=== PATIENT | female | born 1945 | race Caucasian/White ===

== ENCOUNTER 2020-07-20 13:36 | Inpatient (IN) ==
[2020-07-20 15:10] LABS: Basophils # 0.1 K/mcL (0.0-0.2); Basophils % 0.9 %; Eosinophils # 0.1 K/mcL (0.0-0.6); Eosinophils % 0.6 %; Hematocrit 37.5 % (35.3-44.9); Hemoglobin 11.5 g/dL (11.5-15.4); Immature Granulocytes % 0.3 % (0-4); Lymphocytes # 0.9 K/mcL (0.6-4.6); Lymphocytes % 11.7 %; Mean Corpuscular HGB Conc 30.7 g/dL (31.6-35.5); Mean Corpuscular Hemoglobin 28.8 pg (28.0-33.3); Mean Corpuscular Volume 93.8 fL (83.0-100.0); Mean Platelet Volume 12.2 fL (9.4-12.4); Monocytes # 0.8 K/mcL (0.0-1.3); Monocytes % 9.8 %; Neutrophils # 6.1 K/mcL (1.6-8.9); Platelet Count 205 K/mcL (140-400); Red Cell Distribution Width 14.6 % (11.5-14.5); Segmented Neutrophils % 76.7 %; White Blood Count 7.9 K/mcL (4.3-11.1)
[2020-07-20 15:40] LABS: Albumin/Globulin Ratio 1.4 (1.1-2.2); Bilirubin,Total 1.3 mg/dL (0.3-1.0); Calcium 8.9 mg/dL (8.6-10.3); Globulin 2.8 g/dL (2.4-3.5); Potassium 4.5 mEq/L (3.5-5.1); Total Protein 6.8 g/dL (6.4-8.9); Troponin I 0.04 ng/mL (< 0.04)
[2020-07-20 15:45] LABS: Bacteria,Urine Few per hpf (None-Few); Bilirubin,Urine Small (Negative); Blood,Urine Moderate (Negative); Clarity,Urine Turbid (Clear); Color,Urine Yellow (Yellow); Glucose,Urine (UA) Normal (Normal); Hyaline Casts,Urine Few per lpf (None Seen); Ketones,Urine 10 mg/dL (Negative); Leukocyte Esterase,Urine Small (Negative); Mucus,Urine Few per lpf (None-Few); Nitrite,Urine Negative (Negative); PH,Urine 5.5 pH Units (5.0-8.0); Protein,Urine 200 mg/dL (Neg-Trace); Specific Gravity,Urine > 1.030 (1.010-1.025); Squamous Epithelial Cell,Urine Moderate per hpf (None-Few); Transitional Epi Cells,Urine Few per hpf (None-Few); WBC,Urine 15-30 per hpf (0-3)
[2020-07-20] MEDS ORDERED: Furosemide 40 MG/4 ML VIAL IVP ONE (16:55)
[2020-07-20] MEDS ORDERED: Naloxone 0.4 MG/ML INJ IVP PRN (17:22)
[2020-07-20] MEDS ORDERED: Mag Hydrox/Al Hydrox/Simeth 30 ML UDC PO PRN (17:22)
[2020-07-20] MEDS ORDERED: Ondansetron ODT 4 MG TAB.RAPDIS SL PRN (17:22)
[2020-07-20] MEDS ORDERED: Perflutren Lipid Microsphere 1.3 ML in 0.9 % Sodium Chloride 8.7 ML IVP PRN (17:27)
[2020-07-20] MEDS ORDERED: Azithromycin 500 MG in 0.9 % Sodium Chloride 250 ML IVPB SCH (18:00)
[2020-07-20] MEDS: cefTRIAXone 1,000 MG in Water for inj. (sterile) 10 ML IVP SCH (18:46)
[2020-07-21 03:28] LABS: Basophils # 0.1 K/mcL (0.0-0.2); Basophils % 0.7 %; Eosinophils # 0.1 K/mcL (0.0-0.6); Eosinophils % 1.1 %; Hematocrit 36.2 % (35.3-44.9); Hemoglobin 11.2 g/dL (11.5-15.4); Immature Granulocytes % 0.1 % (0-4); Lymphocytes # 1.3 K/mcL (0.6-4.6); Lymphocytes % 16.9 %; Mean Corpuscular HGB Conc 30.9 g/dL (31.6-35.5); Mean Corpuscular Hemoglobin 29.7 pg (28.0-33.3); Mean Platelet Volume 12.2 fL (9.4-12.4); Monocytes # 0.8 K/mcL (0.0-1.3); Monocytes % 11.2 %; Neutrophils # 5.2 K/mcL (1.6-8.9); Platelet Count 188 K/mcL (140-400); Red Blood Count 3.77 M/mcL (3.82-4.97); Red Cell Distribution Width 14.4 % (11.5-14.5); White Blood Count 7.4 K/mcL (4.3-11.1)
[2020-07-21 04:15] LABS: Calcium 8.8 mg/dL (8.6-10.3); Potassium 4.2 mEq/L (3.5-5.1); Troponin I 0.05 ng/mL (< 0.04)
[2020-07-21] MEDS: cefTRIAXone 1,000 MG in Water for inj. (sterile) 10 ML IVP SCH (08:00)
[2020-07-21] MEDS ORDERED: Aspirin 81 MG TAB.CHEW PO SCH (09:00)
[2020-07-21] MEDS ORDERED: Furosemide 40 MG TABLET PO SCH (12:45)
[2020-07-21] MEDS ORDERED: Fluticasone Propionate Nasal 50 MCG/SPRAY BOTTLE NS PRN (12:47)
[2020-07-21] MEDS ORDERED: clonazePAM 1 MG TABLET PO PRN (12:47)
[2020-07-21] MEDS: *HR* Heparin 5,000 UNIT/ML VIAL SQ SCH (16:41)
[2020-07-21] MEDS: carvediloL 6.25 MG TABLET PO SCH (16:41)
[2020-07-21] MEDS: traZODone 50 MG TABLET PO SCH (20:15)
[2020-07-22] MEDS: *HR* Heparin 5,000 UNIT/ML VIAL SQ SCH ×2 (05:12→18:25)
[2020-07-22 05:33] LABS: Hemoglobin 10.8 g/dL (11.5-15.4); Mean Corpuscular HGB Conc 31.8 g/dL (31.6-35.5); Mean Corpuscular Volume 91.4 fL (83.0-100.0); Mean Platelet Volume 11.6 fL (9.4-12.4); Platelet Count 184 K/mcL (140-400); Red Blood Count 3.72 M/mcL (3.82-4.97); Red Cell Distribution Width 14.6 % (11.5-14.5); White Blood Count 6.7 K/mcL (4.3-11.1)
[2020-07-22 05:51] LABS: Calcium 8.5 mg/dL (8.6-10.3); Potassium 3.9 mEq/L (3.5-5.1)
[2020-07-22] MEDS: carvediloL 6.25 MG TABLET PO SCH ×2 (09:03→15:58)
[2020-07-22] MEDS: Aspirin 81 MG TAB.CHEW PO SCH (09:03)
[2020-07-22] MEDS ORDERED: Albumin 25% 25gram/100mL 25 GM/100 ML IV.SOLN IVPB ONE (14:53)
[2020-07-22] MEDS: Furosemide 40 MG/4 ML VIAL IVP SCH (15:57)
[2020-07-22] MEDS: traZODone 50 MG TABLET PO SCH (20:28)
[2020-07-22 21:55] LABS: Protein/Creatinine Ratio,Urine 0.52 mg/mg (0.00-0.20); Sodium, Urine 125.1 mEq/L
[2020-07-23 04:56] LABS: Hematocrit 35.3 % (35.3-44.9); Hemoglobin 11.2 g/dL (11.5-15.4); Mean Corpuscular HGB Conc 31.7 g/dL (31.6-35.5); Mean Corpuscular Hemoglobin 28.9 pg (28.0-33.3); Mean Corpuscular Volume 91.2 fL (83.0-100.0); Mean Platelet Volume 12.1 fL (9.4-12.4); Platelet Count 179 K/mcL (140-400); Red Blood Count 3.87 M/mcL (3.82-4.97); Red Cell Distribution Width 14.6 % (11.5-14.5); White Blood Count 6.6 K/mcL (4.3-11.1)
[2020-07-23] MEDS: *HR* Heparin 5,000 UNIT/ML VIAL SQ SCH ×2 (05:16→16:48)
[2020-07-23 05:18] LABS: Calcium 8.7 mg/dL (8.6-10.3); Potassium 3.6 mEq/L (3.5-5.1)
[2020-07-23 05:19] LABS: Uric Acid 11.6 mg/dL (2.3-7.6)
[2020-07-23 05:49] LABS: Hepatitis B Surface Antigen Nonreactive (Nonreactive)
[2020-07-23 06:18] LABS: Hepatitis B Core IgM Nonreactive (Nonreactive); Hepatitis C Virus Antibody Nonreactive (Nonreactive)
[2020-07-23 06:19] LABS: Hepatitis A Antibody IgM Nonreactive (Nonreactive)
[2020-07-23] MEDS: carvediloL 6.25 MG TABLET PO SCH ×2 (07:34→16:49)
[2020-07-23] MEDS: Aspirin 81 MG TAB.CHEW PO SCH (07:34)
[2020-07-23] MEDS: Furosemide 40 MG/4 ML VIAL IVP SCH (07:34)
[2020-07-23] MEDS: traZODone 50 MG TABLET PO SCH (20:50)
[2020-07-24] MEDS: *HR* Heparin 5,000 UNIT/ML VIAL SQ SCH ×2 (05:16→16:43)
[2020-07-24 05:26] LABS: Hemoglobin 11.9 g/dL (11.5-15.4); Mean Corpuscular HGB Conc 31.3 g/dL (31.6-35.5); Mean Corpuscular Hemoglobin 29.2 pg (28.0-33.3); Mean Corpuscular Volume 93.1 fL (83.0-100.0); Mean Platelet Volume 12.1 fL (9.4-12.4); Platelet Count 204 K/mcL (140-400); Red Blood Count 4.08 M/mcL (3.82-4.97); Red Cell Distribution Width 14.5 % (11.5-14.5); White Blood Count 7.9 K/mcL (4.3-11.1)
[2020-07-24 06:03] LABS: Calcium 8.6 mg/dL (8.6-10.3); Potassium 3.5 mEq/L (3.5-5.1)
[2020-07-24] MEDS: carvediloL 6.25 MG TABLET PO SCH (07:31)
[2020-07-24] MEDS: Aspirin 81 MG TAB.CHEW PO SCH (07:31)
[2020-07-24] MEDS: Furosemide 40 MG/4 ML VIAL IVP SCH (07:31)
[2020-07-24] MEDS ORDERED: carvediloL 6.25 MG TABLET PO ONE (10:51)
[2020-07-24] MEDS ORDERED: Nitroglycerin 1,000 MCG/10 ML VIAL IV ONE (16:21)
[2020-07-24] MEDS ORDERED: ISOVUE-370 200 ML INFUS..BTL ONE (16:21)
[2020-07-24] MEDS ORDERED: 0.9 % Sodium Chloride 2,000 ML ONE (16:21)
[2020-07-24] MEDS ORDERED: Heparin 1,000 UNITS/500 mL 500 ML ONE (16:21)
[2020-07-24] MEDS ORDERED: *HR* Heparin 10,000 UNIT/10 ML VIAL ONE (16:21)
[2020-07-24] MEDS ORDERED: *HR* Midazolam HCl 2 MG/2 ML VIAL ONE (16:33)
[2020-07-24] MEDS ORDERED: *HR* FentaNYL (PF) 100 MCG/2 ML VIAL ONE (16:33)
[2020-07-24] MEDS ORDERED: 0.9 % Sodium Chloride 1,000 ML ONE (16:33)
[2020-07-24] MEDS ORDERED: Furosemide 40 MG/4 ML VIAL IVP ONE (17:11)
[2020-07-24] MEDS: carvediloL 25 MG TABLET PO SCH (17:17)
[2020-07-24] MEDS: traZODone 50 MG TABLET PO SCH (20:33)
[2020-07-25 03:13] LABS: Calcium 8.6 mg/dL (8.6-10.3); Potassium 3.4 mEq/L (3.5-5.1)
[2020-07-25] MEDS: *HR* Heparin 5,000 UNIT/ML VIAL SQ SCH (05:26)
[2020-07-25] MEDS ORDERED: Potassium Chloride Elixir 20 MEQ/15 ML UDC PO ONE (07:12)
[2020-07-25] MEDS: Aspirin 81 MG TAB.CHEW PO SCH (08:48)
[2020-07-25] MEDS: carvediloL 25 MG TABLET PO SCH (08:48)
[2020-07-25] MEDS ORDERED: Furosemide 40 MG TABLET PO SCH (09:00)
[2020-07-25] MEDS ORDERED: Sacubitril/Valsartan 24/26 MG 1 TABLET PO SCH (10:45)
[2020-07-25 11:15] VITALS: BP 94/56
== END 2020-07-25 12:05 | DRG 871 ==
LOC: EMEROOARM 13:36 → 2ANU 13:36 → SUATTDRO 17:28 → 2ANU 18:23 → SUATTDRO 07-21 12:48
PROVIDERS: ADMIT Family Medicine; ATTEND Internal Medicine